=== PATIENT | female | born 1965 | race Caucasian/White ===

== ENCOUNTER → 2019-09-24 08:08 | Outpatient (BNVA) | payer BC, SELFPAY | PROVIDERS: Family Provider Family Medicine; Visit Provider Obstetrics & Gynecology | DX: N95.0 Postmenopausal bleeding (principal); L28.0 Lichen simplex chronicus | CPT/HCPCS: 76830; 80061; 83001; 83036; 84450; 86304 ==

== ENCOUNTER → 2019-10-08 15:22 | Outpatient (BNVA) | payer BC, SELFPAY | PROVIDERS: Family Provider Family Medicine; Visit Provider Obstetrics & Gynecology | DX: L28.0 Lichen simplex chronicus (principal); N95.0 Postmenopausal bleeding | CPT/HCPCS: 88175 ==

== ENCOUNTER → 2019-10-09 13:35 | Outpatient (BNVA) | payer BC, SELFPAY | PROVIDERS: Family Provider Family Medicine; Visit Provider Obstetrics & Gynecology | DX: N95.0 Postmenopausal bleeding (principal) | CPT/HCPCS: 88305 ==

== ENCOUNTER 2019-12-03 10:37 | Outpatient (CLI) | payer BC, SELFPAY ==
--- NOTE | 2019-12-03 10:47 | MM_ITS ---
WS: [id number] BILATERAL DIGITAL SCREENING MAMMOGRAPHY WITH CAD CLINICAL INFORMATION: SCREENING HISTORY: Screening mammogram. No current complaints. COMPARISON: October 24, 2018 TECHNIQUE: Bilateral CC and MLO views. FINDINGS: Scattered fibroglandular densities bilaterally. No suspicious focal mass, asymmetry, calcifications, or architectural distortion. No evidence of malignancy. MM/[place] [id number] IMPRESSION: BI-RADS: 1-Negative FOLLOW UP: 1 Year Follow-up Recommend return to annual screening mammography.
== END 2019-12-03 10:38 | disposition home or self-care (01) ==
LOC: RADSHAW 10:39
PROVIDERS: PCP Family Medicine; Visit Provider Obstetrics & Gynecology
DX: Z12.31 Encounter for screening mammogram for malignant neoplasm of breast (principal); N83.9 Noninflammatory disorder of ovary, fallopian tube and broad ligament, unspecified; D26.1 Other benign neoplasm of corpus uteri
CPT/HCPCS: 76830; 77067

== ENCOUNTER 2021-08-09 10:16 | Outpatient (CLI) | payer BC, SELFPAY ==
--- NOTE | 2021-08-09 10:20 | MM_ITS ---
WS: [id number] VIEWS: MLO and CC views both breasts. 3D digital tomosynthesis is also included in this exam. Comparison made with prior exam of 05/08/2007, 08/24/2016, 10/24/2018, 12/03/2019. Findings: There was no sign of mass, architectural distortion or suspicious calcification in either breast. Fa [place]ty MM/[place] [id number] Impression: BI-RADS: 2-Benign FOLLOW-UP: 1 Year Follow-up This mammogram was also analyzed by the Computer Aided Detection System R2 Imag e [employer].
== END 2021-08-09 10:17 | disposition home or self-care (01) ==
LOC: RADSHAW 10:16
PROVIDERS: PCP Family Medicine; Visit Provider Obstetrics & Gynecology
DX: Z12.31 Encounter for screening mammogram for malignant neoplasm of breast (principal); Z00.00 Encounter for general adult medical examination without abnormal findings
CPT/HCPCS: 77063; 77067; 80061; 83036; 85025

== ENCOUNTER → 2021-11-01 10:48 | Outpatient (BNVA) | payer BC, SELFPAY | PROVIDERS: PCP Family Medicine; Visit Provider Emergency Medicine | DX: M54.32 Sciatica, left side (principal); R31.9 Hematuria, unspecified; H69.80 Other specified disorders of Eustachian tube, unspecified ear | CPT/HCPCS: 81000; 87086 ==

== ENCOUNTER 2022-01-24 14:27 | Outpatient (CLI) | payer BC, SELFPAY ==
--- NOTE | 2022-01-24 15:07 | XR_ITS ---
WS: [id number] KUB, AP view, 01/24/2022 Clinical Data: STONES Comparison: None. Findings: No abnormal intraabdominal masses or calcifications are seen. There is no dilatated small bowel or ev idence of obstruction. Reason moderate amount of fecal material throughout the colon. XR/XR KUB [id number] Impression: Negative KUB.
== END 2022-01-24 14:28 | disposition home or self-care (01) ==
LOC: RAD 14:29
PROVIDERS: PCP Family Medicine; Visit Provider Urology
DX: N20.0 Calculus of kidney (principal)
CPT/HCPCS: 74018; 81003; 87086; 88112

== ENCOUNTER 2022-10-03 08:21 | Outpatient (CLI) | payer BC, SELFPAY ==
--- NOTE | 2022-10-03 08:34 | MM_ITS ---
WS: [id number] VIEWS: MLO and CC views both breasts. 3D digital tomosynthesis is also included in this exam. Comparison made with prior exam of 05/08/2007, 08/24/2016, 10/24/2018, 12/03/2019, 08/09/2021.. Findings: There was no sign of mass, architectural distortion or suspicious calcification in either breast. Sta ble appearing small nodular densities in both breasts. There are scattered areas of fibroglandular de [place]ity MM/[place] [id number] Impression: BI-RADS: 2-Benign finding. FOLLOW-UP: 1 Year Follow-up This mammogram was also analyzed by the Computer Aided Detection System R2 Imag e Lead Sustainability Specialist.
== END 2022-10-03 08:22 | disposition home or self-care (01) ==
PROVIDERS: PCP Family Medicine; Visit Provider Obstetrics & Gynecology
DX: Z12.31 Encounter for screening mammogram for malignant neoplasm of breast (principal)
CPT/HCPCS: 77063; 77067